=== PATIENT | male | born 2000 ===

== ENCOUNTER 2022-08-30 17:14 | Emergency (ER) | payer SELFPAY ==
[2022-08-30] MEDS ORDERED: Sodium Chloride 0.9% 2.5 ML Syringe FLUSH PRN (17:48)
[2022-08-30] MEDS ORDERED: Sodium Chloride 0.9% 10 ML Syringe FLUSH PRN (17:48)
[2022-08-30] MEDS ORDERED: LORazepam 2 MG/ML SDV IVPUSH STA (17:51)
[2022-08-30] MEDS ORDERED: Sodium Chloride 0.9% 1,000 ML IV STA ×2 (18:38→19:35)
[2022-08-30 18:56] LABS: CARBON DIOXIDE,CO2 24.3 mmol/L (21.0-32.0); POTASSIUM,K 3.8 mmol/L (3.5-5.1)
[2022-08-30] MEDS ORDERED: Iopamidol 755 MG/ML 500 ML Multipack Bottle IVPUSH STA (20:51)
== END 2022-08-30 22:52 ==
LOC: MW.ED 17:14
DX: Z02.89 Encounter for other administrative examinations (principal)
CPT/HCPCS: 36415; 70450; 71260; 72125; 72128; 72131; 73090; 73100; 74177; 80053; 80305; 81001; 82550; 83690; 85025; 86706; 86803; 87340; 87389; 96361; 96374; 99284; J2060; J3490; J7030; Q9967; 99282